=== PATIENT | female | born 1950 | race Caucasian/White ===

== ENCOUNTER → 2017-02-13 | Day surgery (SDC) | payer OTHER ==
[2017-02-13] VITALS (9 sets, daily range): BP systolic 135–156; BP diastolic 65–93; PULSE 76–89; RESP 10–18; O2SAT 95–99
[~2017-02-13] VITALS: Ht 167.6 cm; Wt 108.5 kg
[~2017-02-13] MED LIST: ALBU8.5H2 INHALATION; ALPR1TAB2 PO; ASPI-973 PO; Albuterol 2.5 mg/3 mL Inhalation Solution NEB PRN; Atropine 0.4 mg/mL Inj IVPUSH PRN; BUPR150T12 PO; Bacitracin Ointment Packet TOPICAL ONE; Bupivacaine-MPF 0.5% 30 mL Inj INFILTRATE ONE; CALC600T12 PO; CHOL100045 PO; CeFAZolin 2 Gm/50 mL D5W Duplex Bag IV ONE; CeFAZolin Inj 2 GM in IV Premix 1 EACH IV ONE; Dexamethasone 4 mg/mL Inj IVPUSH PRN; Dexamethasone 4 mg/mL Inj ONE; EPHEDrine Sulfate 50 mg/mL Inj IVPUSH PRN; FLUT9.9S NS; Gentamicin 40 mg/mL 2 mL Inj IRRIGATION ONE; Glycopyrrolate 0.2 MG/ML 1mL Inj ONE; HSC.125T PO; HYDROmorphone 0.5 mg/0.5 mL iSecure Syringe ONE; HYDROmorphone 1 mg/mL Inj IVPUSH PRN; LEVO150T5 PO; LORA10CA PO; Lactated Ringer's 1,000 ML IV SCH; Lactated Ringer's 500 ML IV PRN; Lidocaine 1%-Epi 1:100,000 20 mL Inj INFILTRATE ONE; MetoCLOpramide 5 mg/mL 2 mL Inj IVPUSH PRN; Neostigmine 1 mg/mL 10 mL Inj ONE; OMEG500C PO; OMEP20TA24 PO; Ondansetron 2 mg/mL 2 mL Inj IVPUSH PRN; Ondansetron 2 mg/mL 2 mL Inj ONE; Phenylephrine 10,000 mCg/mL Inj IVPUSH PRN; Phenylephrine/NS 100 mCg/mL 10 mL Syringe IVPUSH ONE; Propofol 10,000 mCg/mL 20 mL Inj ONE; Rocuronium 10 mg/mL 5 mL Inj ONE; fentaNYL-PF 50 mCg/mL 2 mL Inj IVPUSH PRN; fentaNYL-PF 50 mCg/mL 2 mL Inj ONE; hydrALAZINE 20 mg/mL Inj IVPUSH PRN; oxyCODONE-Acetamin 5-325 mg Tablet PO PRN
[2017-02-13] MEDS: Lactated Ringer's 1,000 ML IV SCH ×2 (06:00→07:27)
--- NOTE | 2017-02-13 07:07 | PCM.HPANE ---
Patient Data Date of Service: Feb 13, 2017 Surgeon Admitting Provider: Attending Provider:Bandar Pollack DPM Primary Care Physician:Cinthia Brantley MD Other Provider:Sarath More Anesthesia Reason for Visit Left Retrocalcaneal Spur, Left Foot Pain Ht/WT & BMI Height (Feet): 5 Height (Inches): 6.00 Weight (Kilograms): 108.5 Body Mass Index 38.00 Allergies Coded Allergies: propranolol HCl (Verified Allergy, Severe, SOB, 02/12/17) Past Anesthesia History Anesthesia History: Denies:: Abnormal Airway, Anesthesia Reactions, Difficult Intubation (told to say it's anterior), Fam Anesthesia Reaction, Fam Malignant Hypertherm, Malignant Hyperthermia Diabetes History Hx Diabetes?: No MRSA MRSA: No Medications Blood Thinner: Aspirin Last Dose Blood Thinner: Feb 06, 2017 Hypertension Medication: No Home Meds Incl Beta Galina: No Reported Medications Loratadine (Claritin)10 Mg Drfnofe02 Mg PO DAILY Ref 0 02/12/17 Bupropion ER 150 Mg Tablet.er150 Mg PO DAILY Ref 0 02/12/17 Alprazolam (Xanax)1 Mg Tablet0.5-1 Mg PO HS PRN For Anxiety Ref 0 02/11/17 Cholecalciferol (Vitamin D3) (Vitamin D)1,000 Unit Capsule1,000 Unit PO DAILY # 1 BOTTLE Ref 0 02/11/17 Omeprazole Magnesium (Prilosec Otc)20 Mg Tablet.dr20 Mg PO BID #1 PKG Ref 0 02/11/17 Levothyroxine 150 Mcg Vqaukt106 Mcg PO DAILY Ref 0 02/11/17 Hyoscyamine Sulfate (Levsin)0.125 Mg Tab0.125 Mg PO QID 02/11/17 Fluticasone Propionate (Flonase Allergy Relief)50 Mcg/Actuation [place].susp2 Sprays NS DAILY 02/11/17 [place]-3 Fatty Acids (Fish Oil)500 Mg Capsule.dr500 Mg PO DAILY 02/11/17 Calcium Carbonate (Calcium)600 Mg Felpml096 Mg PO DAILY 02/11/17 Aspirin 81 Mg Uynzmq97 Mg PO DAILY Ref 0 02/11/17 Albuterol HFA (Proair HFA)8.5 Gm Hfa.aer.ad2 Puffs INHALATION Q4H #1 INHALER 02/11/17 Discontinued Reported Medications Bupropion ER 200 Mg Tablet.er200 Mg PO DAILY Ref 0 02/11/17 Levothyroxine-Expunged Drug, Do Not Renew! (Synthroid-Expunged Drug, Do Not Renew!)137 Mcg Vmlwgi861 Mcg PO DAILY 05/31/13 Calcium Carbonate (Natural Calcium)500 Mg Jrigen066 Mg PO TID 05/31/13 Albuterol-Expunged Drug, Do Not Renew! 90 Mcg/Puff Hfa.aer.ad1 Puff INH Q4H PRN #18 GM For Wheezing or Shortness of Breath 05/31/13 Cholecalciferol-Expunged Drug, Do Not Renew! (Vitamin D3-Expunged Drug, Do Not Renew!)1,000 Unit Tab.chew1,000 Unit PO DAILY 08/19/12 Fish Oil-Expunged Drug, Do Not Renew! Cap1 Cap PO DAILY 08/13/12 Fluticasone-Expunged Drug, Do Not Renew! (Flonase-Expunged Drug, Do Not Renew!) 16 Gm Aero2 [place] NA DAILY INHALE 2 SPRAY BY INTRANASAL ROUTE DAILY IN EACH NOSTRIL. 08/13/12 Hyoscyamine-Expunged, Do Not Renew! 0.125 Mg Subl0.125 Mg PO Q6HP 08/13/12 Alprazolam-Expunged Drug, Do Not Renew! 1 Mg Tablet0.5-1 Mg PO HS TAKE ONE-HALF TAB(0.5MG) TO 1 TABLET (1MG) BY MOUTH DAILY AT BEDTIME. 08/13/12 Omeprazole-Expunged Drug, Do Not Renew! 20 Mg Capsule.dr20 Mg PO BIDAC 11/13/11 Bupropion-Expunged Drug, Do Not Renew! 75 Mg Hevpkf20 Mg PO DAILY 11/12/11 History History of ENT Problems?: No HEENT History: Denies:: Abnormal Airway Difficult Intubation (told to say it's anterior) Dysphagia Hearing Problem Sinus Problem TMJ Denture Type: None Teeth Condition: Within Normal Limits Hx of Heart Problems?: Yes Cardiovascular History: Positive for:: Heart Murmur (MILD TRICUSP REGURG ECHO 12/2011) Irregular Heartbeat (PALPITATIONS 12/2011 ) Hx of Respiratory Problem?: Yes Respiratory History: Positive for:: Asthma Pneumonia (last 2009) Use of C-PAP Machine Use of Inhalers / NEBS (albuterol) Denies:: COPD Chest Surgery Cough Dyspnea Emphysema Hemoptysis Pulmonary Embolism Tuberculosis Hx Neurologic Problems?: No Neurological History: Denies:: Alzheimer's Disease CVA Dementia Dizziness Headaches Parkinson's Disease Seizures TIA Hx of GI Problems?: Yes Gastrointestinal History: Positive for:: Gastroesphageal Reflux Hx of Problems?: No Female Hx: Denies:: Currently Problems with Breasts? Skin History: Denies:: History Skin Disorders? Pressure Ulcers Hx Musculoskeletal Problems?: Yes Musculoskeletal History: Positive for:: Fibromyalgia Denies:: Back Injury Degenerative Joint Joint Replacement Musculoskeletal Trauma Myasthenia Gravis Osteoarthritis Rheumatoid Arthritis Systemic Lupus Hx of Psycho/Social Problems?: No Psycho Social History: Positive for:: Anxiety Hx Surgeries?: Yes (THYROIODECTOMY,MCKENZIE,RT FOOT RPR) Hx Any Other Health Problems?: Yes Other History: Positive for:: Thyroid Disease (S/P THYROIDECTOMY) Denies:: Cancer Endocrine Disease Hospitalization History Blood Transfusions: Positive for:: Accept Blood Products? Denies:: Blood Transfusions Hx Diabetes: No Hx Alcohol Use: YesHx Substance Use: NoHave You Smoked inLast 12 mo: No Stop/Bang Treated for Sleep Apnea?: Yes Do You Have a CPAP Machine?: Yes VINI Risk Assessment: High Risk, =/>3 Yes VINI Category 2: Yes Risk Assessment Category Category 1A: Patient has history of documented sleep apnea, and HAS NOT received any narcotic, sedative or anesthesia administration during this stay. Category 1B: Patient has history of documented sleep apnea, and HAS received any narcotic , sedative or anesthesia administration during this stay Category 2: Patient has SUSPECTED Obstructive Sleep Apnea, and HAS received any narcotic , sedative or anesthesia administration during this stay. Category 3: Patient has SUSPECTED Obstructive Sleep Apnea and HAS NOT received narcotic, sedative or anesthesia administration during this stay. Category 4: Outpatient in Procedural Areas with known sleep apnea or who screen positive for High Risk via the STOP/BANG questionnaire. Exam Exam Vital Signs Vital Signs Date Time Temp Pulse Resp B/P Pulse Ox O2 Delivery O2 Flow Rate FiO2 02/13/17 06:36 36.0 76 18 156/78 97 Room Air 02/13/17 06:36 CPAP/BIPAP General Appearance: Alert, Oriented X3, Cooperative HEENT/AIRWAY: MP 4, Neck Movement (ok, but thick), Mouth Opening (small) Lungs: Clear to Auscultation, Normal Air Movement Heart: Regular Rate/Rhythm, Normal S1, Normal S2 Meds/Labs/Diagnostics Admission Meds Current Medications Lactated Ringer's (Lr) 1,000 ml @ 120 mls/hr Q8H20M IV Last administered on t 06:00; Start 02/13/17 at 05:00; Stop 02/13/17 at 13:19 Plan Impression Patient chart reviewed, patient interviewed and anesthestic plan with risks, benefits, and alternatives discussed, and informed consent obtained. NPO per Anesth. Guidelines: Yes ASA Physical Status: ASA2 Mod Systemic Disease Anesthetic Support Modalities: Fiberoptic Scope Anesthetic Plan: GA Bene/Risks/Altern/Consents: Yes HP Complete Prior to Induction: Yes Other Patient told her airway was "anterior", last anesthetic at [facility] noted 1/3 of vocal cords seen with glidescope intubation and difficulty passing tube. Discussed sedated fiberoptic intubation with the patient for safety. She understands the concerns Devante Vieira MD Feb 13, 2017 07:07
--- NOTE | 2017-02-13 10:55 | PCM.PODPO ---
Podiatry Operative Report Date of Service: Feb 13, 2017 Date of Service Feb 13, 2017 Pre Operative Diagnosis #1 large retrocalcaneal exostosis left heel #2 gastrocnemius equinus left Post Operative Diagnosis Same Procedure #1 resection of retrocalcaneal exostosis with secondary repair of Achilles tendon utilizing Arthrex speed bridge construct, left #2 gastrocnemius recession, left Surgeon Surgeon: Bandar Pollack DPM Assistants: None Indication for Procedure Same Findings Same Details of Procedure Patient was to the operating suite and surgical timeout observed. The patient was intubated on the gurney by the anesthesiologist and rolled prone onto a Nuno frame per protocol. Anatomic landmarks were demarcated. The intended surgical sites of the posterior calf and posterior heel were infiltrated with approximately 15 cc 1% lidocaine with epinephrine and 0.5% Marcaine plain. The extremity was then prepped and draped in usual aseptic manner. Attention was directed to the posterior calf for an approximately 2 cm linear incision was made slightly medial to midline overlying the gastrocnemius aponeurosis. Small superficial bleeders were cauterized and blunt dissection performed exposing the paratenon of the gastrocnemius aponeurosis which was incised longitudinally and [employer]-[place] retractors were applied tenting the soft tissues exposing the gastroc aponeurosis. A linear transection utilizing a 15 blade was performed with care taken to avoid incising the underlying soleal muscle belly with the knee extended the ankle was dorsiflexed in approximately 1.5 cm of lengthening was achieved with the ankle at +5 dorsiflexion. Site was copiously irrigated with antibiotic solution, peritenon repaired with 4-0 Vicryl, sub-every 2 tissues reapproximated superficially so as to avoid neurovascular structures with 4-0 Vicryl and skin with 3-0 Prolene. Attention was then directed to the posterior heel. A serpentine-shaped incision was made extending from proximal laterally to distal medially with the transverse arm crossing the posterior calcaneus just distal to the Achilles insertion site. Full-thickness flaps were developed. A linear incision was made in the Achilles tendon and its calcaneal insertion and subtendinous dissection performed medially and laterally developing tenderness flaps and exposing the large bony excrescence. The dorsal posterior aspect of the calcaneus was resected using a sagittal saw and the cut bone surface was smooth and remodeled utilizing a power reciprocating rasp. All bony prominence were smoothed and lateral fluoroscopic exam showed appropriate resection of the exostotic projection and good posterior superior contour of the calcaneus. The retrocalcaneal bursa was excised. The hypertrophic tendon was conservatively debrided. The Achilles tendon midline incision was sutured with 3-0 Vicryl and the foot print for the 4 Arthrex anchor points denoted with a marker. The sites were drilled and tapped. The proximal row of soft tissue anchors were applied. The FiberWire sutures were utilized to coapt the tendon to the dorsal superior aspect of the calcaneus, and tied independently of each other. These sutures were incorporated in the crossed fiber tape fixation pattern. The distal anchors were inserted and tensioned appropriately and excellent fixation and compression of the Achilles onto the raw bone surface was achieved. Additional 2-0 FiberWire sutures were utilized to reinforce the distal soft tissues. Palpation revealed excellent reduction in the large bony prominence and normal posterior heel contour. The site was again irrigated, the deep tissues were reapproximated with 4-0 Vicryl and skin with 3-0 Prolene with care taken to zora wound margins. Additional local anesthetic of the proximal A 60 cc 0.5% Marcaine was infiltrated. Antibiotic ointment Adaptic dressing was applied followed by a mildly compressive Kerlix gauze bandage and a well-padded Ortho-Glass splint with the ankle at 90 to the leg. The patient was rolled supine and extubated uneventfully, she left the operating suite in apparently satisfactory condition, there were no complications. Grafts, Implants: Grafts-See Implant Record, Implants-See Implant Record Complications There were no periprocedural complications identified. Condition Stable Anesthetic Administered: GA Drains: None Catheters: None Output, Estimated Blood Loss: 10 Blood Admin during surgery: No Surgical Cast or Splint: Well-padded Short Leg Splint Surgical Specimen Removed: No Specimen sent to Pathology: No Post Operative Plan Postoperative instructions have been reviewed and written copy dispensed and return appointment made 5 days postoperative. Bandar Pollack DPM Feb 13, 2017 10:55
--- NOTE | 2017-02-13 11:31 | PCM.ANEP1 ---
Post Anesthesia PACU Phase 1 Assessment Date of Service: Feb 13, 2017 Vital Signs Vital Signs Date Time Temp Pulse Resp B/P Pulse Ox O2 Delivery O2 Flow Rate FiO2 02/13/17 11:00 79 12 135/69 96 Room Air 02/13/17 10:50 36.1 82 10 143/72 95 Room Air 02/13/17 10:45 83 10 146/73 96 Room Air 02/13/17 10:40 89 12 144/93 98 Room Air 02/13/17 10:35 82 10 147/65 98 Room Air 02/13/17 10:30 82 11 146/66 99 Simple Mask 8 02/13/17 10:25 36.1 86 14 148/70 95 Simple Mask 8 02/13/17 06:36 36.0 76 18 156/78 97 Room Air 02/13/17 06:36 CPAP/BIPAP Anesthetic Administered: GA Level of Alertness: Awake, talking RUFF's with Equal Strength: Yes Pain: No Nausea or Vomiting: No CV Function & Hydration Stable: Yes Airway Device: Oxygen Delivery: Simple Mask Lungs: Normal Air Movement Dermatome Level: Full Sensation PACU Phase 2 Assessment Complications: No Follow up Care: N/A Patient Instructions Provided: N/A Devante Vieira MD Feb 13, 2017 11:31
--- NOTE | 2017-02-19 08:05 | PATH ---
SURGICAL PATHOLOGY Attending Physician:Bandar Pollack DPM CASE STATUS: Signed Out PATIENT NAME: SHIRLEY SPARKS PID: [id number] : 1950 DATE COLLECTED:02/13/2017 00:00 SPECIMEN: Bone, Biopsy CLINICAL HISTORY: LEFT RETROCALCANEAL SPUR 1). BONE SPUR, LEFT FOOT FINAL DIAGNOSIS: Bone Spur, Left Foot, Excision: Fragment of remodeling bone with marrow fibrosis, consistent with bone spur. ICD10: M77.32 GROSS DESCRIPTION: The specimen is received in formalin, labeled with the patient's name, sublabeled as bone spur left foot, and consists of a piece of garland-ramirez hard tissue (2.5 x 2.2 x 0.6 cm). One side is bosselated and the opposite side is smooth and flat. The tissue cannot be slice with a scalpel. The cut surface is garland-white and unremarkable. Section code: (A) tissue, serially sectioned, guest services representative. Note: The tissue has been decalcified. 02/15/17 ICD-9 CODES: CPT CODES: 1: 60827, 15213 Electronically Signed Out Juan David Renner MD, Ph.D. [facility] Pathology [facility] [address], [place] [address] Technical component performed at [facility], [facility] [address], [place], [address]
== END | disposition home or self-care (01) ==
LOC: SAS 05:55
PROVIDERS: ATTEND Podiatrist
DX: M77.32 Calcaneal spur, left foot (principal); M89.9 Disorder of bone, unspecified; M21.6X2 Other acquired deformities of left foot; S86.012A Strain of left Achilles tendon, initial encounter; M79.672 Pain in left foot; I34.0 Nonrheumatic mitral (valve) insufficiency; E03.9 Hypothyroidism, unspecified; R73.01 Impaired fasting glucose; J45.909 Unspecified asthma, uncomplicated; K21.9 Gastro-esophageal reflux disease without esophagitis; F41.9 Anxiety disorder, unspecified; M79.7 Fibromyalgia; G25.81 Restless legs syndrome; Z79.82 Long term (current) use of aspirin
CPT/HCPCS: 27654; 27687; 28120; C1713; J0690; J1100; J1170; J1580; J2250; J2370; J2405; J2704; J2710; J3010; J7120